=== PATIENT | male | born 1965 | race Caucasian/White ===

== ENCOUNTER 2016-08-25 18:22 | Emergency (ER) | payer BC ==
[~2016-08-25] VITALS: Ht 185.4 cm; Wt 90.7 kg
[2016-08-25] MEDS ORDERED: NKM (19:14)
[2016-08-25 19:36] VITALS: BP 124/67
[2016-08-25 19:54] LABS: MEAN CORPUSCULAR HEMOGLOBIN 31.9 PG (27.0-31.0); MEAN CORPUSCULAR HGB CONC 32.7 G/DL (32.0-36.0); MEAN CORPUSCULAR VOLUME 97 FL (80-99); PLATELET COUNT 153 K/UL (150-450); RED BLOOD COUNT 5.01 M/UL (4.70-6.10); RED CELL DISTRIBUTION WIDTH 12.2 % (11.6-14.8); WHITE BLOOD COUNT 9.6 K/UL (4.8-10.8)
[2016-08-25 20:05] LABS: ALBUMIN/GLOBULIN RATIO 1.5 (1.0-2.7); CALCIUM 10.1 mg/dL (8.6-10.2); CREATININE 1.4 mg/dL (0.7-1.2); POTASSIUM 4.3 mEQ/L (3.4-4.9); TOTAL PROTEIN 7.3 g/dL (6.6-8.7)
[2016-08-25 20:24] LABS: APPEARANCE,URINE CLEAR; KETONES,URINE NEGATIVE (NEGATIVE); LEUKOCYTE ESTERASE ,URINE NEGATIVE (NEGATIVE); NITRITE,URINE NEGATIVE (NEGATIVE); PH,URINE 5 (4.5-8.0); PROTEIN,URINE 1+ (NEGATIVE); UROBILINOGEN,URINE 1 MG/DL (0.0-1.0)
[2016-08-25 20:38] LABS: BACTERIA,URINE FEW /HPF; WBC,URINE 0-2 /HPF (0 - 0)
[2016-08-25 21:05] VITALS: BP 122/68
[2016-08-25 21:24] LABS: BAND NEUTROPHILS % (MANUAL) 5 % (0-8); BASOPHILS % (MANUAL) 0 % (0-2); EOSINOPHILS % (MANUAL) 0 % (0-3); LYMPHOCYTES % (MANUAL) 6 % (20-45); NEUTROPHILS % (MANUAL) 84 % (45-75); PLATELET ESTIMATE ADEQUATE; PLATELET MORPHOLOGY NORMAL; TOTAL CELLS COUNTED 100
[2016-08-25 21:30] VITALS: BP 124/67
--- NOTE | 2016-08-25 23:01 | Emergency Room Report ---
History of Present Illness General Chief Complaint: Abdominal Pain Source: Patient Present Illness HPI The pt is a 51 yo M presenting for RLQ pain which began this morning. The pt states this pain woke him up from sleep which is unusual. The pain was initially greater but is now described as a 3/10 dull ache and does not radiate. The pain began in the RLQ. The pain is constant and worse with movement. The pt denies any other symptoms such as N, V, F, chills, diarrhea, constipation, indigestion, flank pain, CP, SOB, dysuria, hematuria. Pt denies any medical history Allergies: Coded Allergies: No Known Allergies (Unverified , 08/25/16) Patient History Past Medical History: see triage record Pertinent Family History: none Reviewed Nursing Documentation: PMH: Agreed, PSxH: Agreed Nursing Documentation-PMH Past Medical History: No Stated History Review of Systems All Other Systems: negative except mentioned in HPI Physical Exam Vital Signs Date Time Temp Pulse Resp B/P Pulse Ox O2 Delivery O2 Flow Rate FiO2 08/25/16 19:08 100.2 101 16 123/67 99 Room Air Sp02 EP Interpretation: reviewed, normal General Appearance: no apparent distress, alert, GCS 15, non-toxic Head: normocephalic, atraumatic Eyes: bilateral eye PERRL, bilateral eye normal inspection ENT: hearing grossly normal, normal pharynx, no angioedema, normal voice Neck: full range of motion, supple/symm/no masses Respiratory: chest non-tender, lungs clear, normal breath sounds, speaking full sentences Cardiovascular #1: regular rate, rhythm, no edema Gastrointestinal: normal inspection, normal bowel sounds, soft, non-distended, no guarding, tenderness - RLQ Genitourinary: normal inspection, no CVA tenderness Musculoskeletal: back normal, gait/station normal, normal range of motion, non- tender Neurologic: alert, oriented x3, responsive, motor strength/tone normal, sensory intact, normal gait, speech normal Psychiatric: judgement/insight normal, memory normal, mood/affect normal, no suicidal/homicidal ideation Skin: normal color, no rash, warm/dry, well hydrated Lymphatic: no adenopathy Medical Decision Making PA Attestation Dr. Hartley is my supervising physician. Patient management was discussed with my supervising physician Diagnostic Impression: Primary Impression: Abdominal pain ER Course The pt is a 51 yo M presenting for RLQ pain which began this morning. DDx considered but not limited to: appendicitis, gastroenteritis, pyelonephritis , renal lithiasis, constipation PE: temperature elevated but afebrile. Pt initially tachycardic but WNL for all subsequent vitals. RRR Lungs CTA bilat Abd: soft. Non distended. Normal BS. No guarding. +TTP over the RLQ only. No CVA tenderness CBC shows no leukocytosis. CMP shows elevated Cr to 1.4 UA shows no signs of infection. There is 4+ occult blood. CT will be without contrast due to elevated Cr Shows: Small liver lesions and a R renal cyst. The pt declined pain medication and was informed of these results. The pt will FU with PMD at [facility]. ER precautions given. Laboratory Tests Test 08/25/16 19:21 08/25/16 19:26 Urine Color Yellow Urine Appearance Clear Urine pH 5 (4.5-8.0) Urine Specific [place] 1.020 (1.005-1.035) Urine Protein 1+ (NEGATIVE) H Urine Glucose (UA) Negative (NEGATIVE) Urine Ketones Negative (NEGATIVE) Urine Occult Blood 4+ (NEGATIVE) H Urine Nitrite Negative (NEGATIVE) Urine Bilirubin Negative (NEGATIVE) Urine Urobilinogen 1 MG/DL (0.0-1.0) H Urine Leukocyte Esterase Negative (NEGATIVE) Urine RBC 5-10 /HPF (0 - 0) H Urine WBC 0-2 /HPF (0 - 0) Urine Squamous Epithelial Cells None /LPF (NONE/OCC) Urine Bacteria Few /HPF (NONE) White Blood Count 9.6 K/UL (4.8-10.8) Red Blood Count 5.01 M/UL (4.70-6.10) Hemoglobin 16.0 G/DL (14.2-18.0) Hematocrit 48.8 % (42.0-52.0) Mean Corpuscular Volume 97 FL (80-99) Mean Corpuscular Hemoglobin 31.9 PG (27.0-31.0) H Mean Corpuscular Hemoglobin Concent 32.7 G/DL (32.0-36.0) Red Cell Distribution Width 12.2 % (11.6-14.8) Platelet Count 153 K/UL (150-450) Mean Platelet Volume 9.0 FL (6.5-10.1) Neutrophils (%) (Auto) % (45.0-75.0) Lymphocytes (%) (Auto) % (20.0-45.0) Monocytes (%) (Auto) % (1.0-10.0) Eosinophils (%) (Auto) % (0.0-3.0) Basophils (%) (Auto) % (0.0-2.0) Differential Total Cells Counted 100 Neutrophils % (Manual) 84 % (45-75) H Lymphocytes % (Manual) 6 % (20-45) L Monocytes % (Manual) 5 % (1-10) Eosinophils % (Manual) 0 % (0-3) Basophils % (Manual) 0 % (0-2) Band Neutrophils 5 % (0-8) Platelet Estimate Adequate Platelet Morphology Normal Red Blood Cell Morphology Normal Sodium Level 140 mEQ/L (135-145) Potassium Level 4.3 mEQ/L (3.4-4.9) Chloride Level 99 mEQ/L (98-107) Carbon Dioxide Level 25 mEQ/L (20-30) Anion Gap 16 (5-15) H Blood Urea Nitrogen 18 mg/dL (7-23) Creatinine 1.4 mg/dL (0.7-1.2) H Estimate Glomerular Filtration Rate 53.0 mL/min (>60) Glucose Level 120 mg/dL (74-106) H Calcium Level 10.1 mg/dL (8.6-10.2) Total Bilirubin 0.7 mg/dL (0.0-1.2) Aspartate Amino Transferase (AST) 18 U/L (5-40) Alanine Aminotransferase (ALT) 28 U/L (3-41) Alkaline Phosphatase 59 U/L (40-129) Total Protein 7.3 g/dL (6.6-8.7) Albumin 4.4 g/dL (3.5-5.2) Globulin 2.9 g/dL Albumin/Globulin Ratio 1.5 (1.0-2.7) Lipase 34 U/L (< 60) Lab Results Impression CBC shows no leukocytosis. CMP shows elevated Cr to 1.4 UA shows no signs of infection. There is 4+ occult blood. CT/MRI/US Diagnostic Results CT/MRI/US Diagnostic Results : Imaging Test Ordered: CT abd pelvis Impression No acute abnormality Mild fatty liver Subcentimeter low-attenuation liver lesions, too small to characterize, most likely benign simple cysts. No further followup necessary Right renal cyst Last Vital Signs Date Time Temp Pulse Resp B/P Pulse Ox O2 Delivery O2 Flow Rate FiO2 08/25/16 21:30 100.2 84 16 124/67 99 Room Air Status: improved Disposition: HOME, SELF-CARE Condition: Improved Referrals: SCOUT ANG MD (PCP) Patient Instructions: Abdominal Pain, Adult Additional Instructions: I discussed my findings with the patient. All questions and concerns have been answered. Treatment and medication compliance have been addressed. I advised the patient that they need to follow up with PMD in 3-5 days. Return to ED if symptoms worsen, new symptoms arise, or if needed for any reason. Patient verbalized understanding of discharge instructions. CHALO GONSALEZ Aug 25, 2016 23:01
--- NOTE | 2016-08-26 09:51 | Diagnostic Imaging Report ---
Indication: Right lower bowel pain started this morning Technique: Spiral acquisitions obtained through the abdomen and pelvis. No oral contrast utilized, per emergency room physician request No IV contrast utilized, per emergency room physician request.. Multiplanar reconstructions were generated. Total dose length product 949 mGycm. CTDIvol(s) explain mGy Comparison: None Findings: The appendix is normal. No evidence of diverticulosis or diverticulitis. There are prominent fluid-filled small bowel loops, without definite transition point. No free or loculated intraperitoneal air or fluid. Distal esophagus, stomach, duodenum are unremarkable. The liver demonstrates multiple subcentimeter low-attenuation lesions which are too small to characterize. Is mildly hypoattenuating. There is a calcification within segment 8. The gallbladder, bile ducts, pancreas, spleen, are all unremarkable. The right kidney demonstrates a peripheral interpolar cyst. No renal or ureteral calculi, hydronephrosis, or hydroureter. This no pelvic mass or adenopathy. The prostate is somewhat prominent. The bladder is nondistended. The included lung bases are clear except for minimal scarring or atelectasis posteriorly. The bones are unremarkable. Impression: No acute abnormality Mild fatty liver Subcentimeter low-attenuation liver lesions, too small to characterize, most likely benign simple cysts. No further followup necessary Right renal cyst This agrees with the preliminary interpretation provided overnight by Dr. Aguust The CT scanner at [facility] is accredited by the [employer] and the scans are performed using protocols designed to limit radiation exposure to as low as reasonably achievable to attain images of sufficient resolution adequate for diagnostic evaluation.
== END 2016-08-25 21:05 | disposition home or self-care (01) ==
LOC: EMR 19:13
DX: N28.1 Cyst of kidney, acquired (principal); K76.0 Fatty (change of) liver, not elsewhere classified
CPT/HCPCS: 36415; 74176; 80053; 81003; 83690; 85007; 85025; 99282